=== PATIENT | male | born 2000 | race Hispanic/Latino ===

== ENCOUNTER 2024-10-15 17:08 | Emergency (ER) | payer SELFPAY ==
[2024-10-15 17:09] VITALS: BP 102/91; PULSE 81; RESP 16; TEMP 36; O2SAT 97; BMI 26.4
--- NOTE | 2024-10-15 17:28 | EX.ED.DYSGE1 ---
HPI <RONAL Harper - Last Filed: 10/15/24 17:38> History of Present Illness Chief Complaint: Abd Pain Narrative Narrative: Patient is a 24-year-old male that is [place]-speaking. Pay states of the last 2 weeks, he has been having itching to his rectum. Patient states however he has a bowel movement he has pain. Patient sometimes when he wipes there is blood on the paper. He denies any fever or chills. Denies any significant abscess formation. [place] any known history. Denies any specific abdominal pain. <Dr. Tha Dacosta DO - Last Filed: 10/15/24 22:20> Narrative Narrative: Patient is a 24-year-old male that is [place]-speaking. Pay states of the last 2 weeks, he has been having itching to his rectum. Patient states however he has a bowel movement he has pain. Patient sometimes when he wipes there is blood on the paper. He denies any fever or chills. Denies any significant abscess formation. Denies any known history. Denies any specific abdominal pain. PFSH <RONAL Harper - Last Filed: 10/15/24 17:38> [facility] Home Medications ?Medication ?Instructions ?Recorded ?Last Taken ?Type hydrocortisone 2.5 % topical cream 1 applic NC TID 10 days #30 grams 10/15/24 Unknown Rx with perineal applicator (Anusol-HC) hydrocortisone acetate 25 mg 25 mg NC BID #12 ea 10/15/24 Unknown Rx rectal suppository (Anusol-HC) Allergy/AdvReac Type Severity Reaction Status Date / Time No Known Allergies Allergy Verified 10/15/24 17:08 Social History Smoking Status: Current every day smoker tobacco type: cigarettes ROS <RONAL Harper - Last Filed: 10/15/24 17:38> ROS ED ROS Narrative Constitutional: Negative for fever, chills, weight loss, weakness Eyes: Negative for vision loss, vision change, double vision ENT: Negative for any sore throat, ear pain, congestion Cardiovascular: Negative for any chest pain, tightness, palpitations Respiratory: Negative for any cough, sputum production, hemoptysis, dyspnea, dyspnea on exertion, orthopnea Gastrointestinal: Negative for any abdominal pain, nausea, vomiting, diarrhea, constipation, blood in stool, blood in vomit. Positive for rectal pain : Negative for any urinary frequency, dysuria, retention, blood in urine Muscle skeletal: Negative for any neck pain, back pain Neurological: Negative for any headache, syncope, dizziness Skin: Negative for any rashes, itching, abrasions, lacerations Psychiatric: Negative for any depression, anxiety, stress, suicidal ideation, homicidal ideation Hematologic: Negative for any excessive bruising, easy bleeding EXAM <RONAL Harper - Last Filed: 10/15/24 17:38> Physical Exam Narrative Exam Narrative: Vital signs reviewed. HEET: Head normocephalic atraumatic, TMs clear bilaterally. Posterior pharynx is clear, moist mucous membranes. Nares clear bilaterally. Neck: Supple with no lymphadenopathy or tenderness. No signs of meningismus. Cardiac: Regular rate and rhythm no murmurs gallops or rubs, equal peripheral pulses bilaterally. Respiratory: Lungs clear to auscultation bilaterally. No chest tenderness. Abdomen: Soft, nontender, nondistended. No abdominal bruit or pulsatile masses. No hepatosplenomegaly Extremities: No peripheral edema, no signs of gross trauma or deformity. Active full range of motion of all extremities. Neuro: Cranial nerves II through XII intact, no focal neurological deficits. Skin: Clean dry and intact with no rash, purpura, petechiae, vesicles or pustules. Backs/flank: No CVA tenderness, no midline spinal tenderness, no deformity. Psych: Normal mood and affect. No SI, HI or acute psychosis. Rectal: Rectal exam was completed with female nurse Ailyn. Patient had no erythema, there is no external hemorrhoid, there is no melena or ander bleeding. Patient during internal exam did appear to have some internal hemorrhoids. There is no abscess formation. There is no drainage. Stool in my finger was brown. Const Vital Signs: 10/15/24 17:09 Temperature 96.8 F L Temperature Source Temporal Pulse Rate 81 Respiratory Rate 16 Blood Pressure 102/91 H Blood Pressure Mean 94 Pulse Ox 97 Oxygen Delivery Method Room Air Positive well nourished and well developed General Appearance ED: well developed <Dr. Tha Dacosta, - Last Filed: 10/15/24 22:20> Physical Exam Const Vital Signs: 10/15/24 17:09 Temperature 96.8 F L Temperature Source Temporal Pulse Rate 81 Respiratory Rate 16 Blood Pressure 102/91 H Blood Pressure Mean 94 Pulse Ox 97 Oxygen Delivery Method Room Air [facility] <RONAL Harper - Last Filed: 10/15/24 17:38> [facility] Treatment and Re-Evaluation :: Differential diagnosis includes however is not limited to: Rectal abscess, constipation, herpetic lesions, internal hemorrhoids, thrombosed hemorrhoids Patient appears generally well, vital signs are stable, patient is nontoxic-appearing. Presenting to the emergency department with rectal pain, itching for the last 2 weeks. Physical examination is consistent with more of a internal hemorrhoid. I have no evidence suspect any infectious process such as abscess formation, rectal abscess. There is no bleeding noted. Patient's rectum is soft. Patient be given Anusol with applicators. He is instructed to follow-up with GI if problems persist. All questions were answered, stable for discharge. <Dr. Tha Dacosta DO - Last Filed: 10/15/24 22:20> [facility] Treatment and Re-Evaluation :: Differential diagnosis includes however is not limited to: Rectal abscess, constipation, herpetic lesions, internal hemorrhoids, thrombosed hemorrhoids Patient appears generally well, vital signs are stable, patient is nontoxic-appearing. Presenting to the emergency department with rectal pain, itching for the last 2 weeks. Physical examination is consistent with more of a internal hemorrhoid. I have no evidence suspect any infectious process such as abscess formation, rectal abscess. There is no bleeding noted. Patient's rectum is soft. Patient be given Anusol with applicators. He is instructed to follow-up with GI if problems persist. All questions were answered, stable for discharge. ED attending note: I evaluated the patient in conjunction with the ANN. I agree with his/her statements and above findings. I have personally performed a face to face assessment of the patient and have reviewed the ANN Note. I performed a substantive portion of the visit including all aspects of the following. I personally saw the patient performed chart review, physical exam, reviewed labs, imaging (if obtained), and formulated a treatment and management plan. This note was generated with [employer]ation software. It may contain incorrect words, spelling, and punctuation that were not noted in review of the chart prior to signing. Discharge Plan Triage Chief Complaint: Abd Pain Other Complaint: GI Bleed ED Midlevel Provider: Charles Denson ED Provider: Tha Dacosta Dx/Rx/DC Orders Clinical Impression: Hemorrhoids Instructions: Treating Hemorrhoids: Self-Care, Eating a High-Fiber Diet, ED Hemorrhoids Prescriptions: New hydrocortisone acetate [Anusol-HC] 25 mg suppository 25 mg NC BID Qty: 12 0RF hydrocortisone [Anusol-HC] 2.5 % cream with perineal applicator 1 applic NC TID 10 Days Qty: 30 0RF Primary Care Provider: Care Physician,No Primary Referrals: [facility], [Med Staff - Active Staff] - NOT,DEFINED [Non-Staff] - Print Language: [place] Disposition Disposition: Home, Self Care Discharge Date/Time: 10/15/24 17:57
== END 2024-10-15 17:57 | disposition home or self-care (01) ==
PROVIDERS: Emergency Provider Emergency Medicine; Visit Provider Emergency Medicine
DX: R10.9 Unspecified abdominal pain (principal); K64.9 Unspecified hemorrhoids; F17.210 Nicotine dependence, cigarettes, uncomplicated
CPT/HCPCS: 99282